=== PATIENT | female | born 1975 | race Caucasian/White ===

== ENCOUNTER → 2018-09-23 | Outpatient (CLI) | payer BC ==
[~2018-09-23] MED LIST: IBU800 PO; LABE200T31 PO; NIFE90TA40 PO; PER PO; PREN-127 PO
--- NOTE | 2018-09-27 10:17 | RADIOLOGY IMAGING REPORT ---
FACILITY: [facility] [place] PATIENT NAME: PAT RODRIGUEZ : [id number] MR: [id number] V: [id number] EXAM DATE: [id number] ORDERING PHYSICIAN: KENTON KRUEGER TECHNOLOGIST: Mone Antony PROCEDURE: BILATERAL DIGITAL SCREENING MAMMOGRAM WITH CAD ASSISTED INTERPRETATION & 3D TOMOSYNTHESIS REASON FOR STUDY: Screening FAMILY HISTORY OF BREAST CANCER: BREAST PROCEDURES/TREATMENTS: COMPARISON: Priors. VIEWS OBTAINED: 2D & 3D full field CC & MLO. BREAST DENSITY: The breasts are heterogeneously dense. MAMMOGRAM FINDINGS: A small group of microcalcifications is present in the superior aspect of the Right breast, warranting additional evaluation. Benign appearing asymmetries are scattered bilaterally, essentially unchanged. IMPRESSION: BIRADS 0: Incomplete. Right CC & Right ML Spot magnification views for evaluation of Right breast calcifications. DIAGNOSTIC CATEGORY 0--INCOMPLETE: NEED ADDITIONAL IMAGING EVALUATION. RECOMMENDATIONS: ADDITIONAL MAMMOGRAPHIC VIEWS REQUIRED: RIGHT BREAST. Dictated by: Fer Hernandez M.D. on 09/26/2018 at 8:59 Transcribed by: ADRIENNE on 09/26/2018 at 9:54 Approved by: Lori Orosco M.D. on 09/27/2018 at 10:16 [facility]
== END ==
LOC: MAMO 02:31
PROVIDERS: ATTEND Nurse Practitioner Family
DX: R92.8 Other abnormal and inconclusive findings on diagnostic imaging of breast (principal); Z80.3 Family history of malignant neoplasm of breast
CPT/HCPCS: 77063; 77067

== ENCOUNTER → 2018-10-04 | Outpatient (CLI) | payer BC ==
--- NOTE | 2018-10-05 14:37 | RADIOLOGY IMAGING REPORT ---
FACILITY: [facility] [place] PATIENT NAME: PAT RODRIGUEZ : [id number] MR: [id number] V: [id number] EXAM DATE: ORDERING PHYSICIAN: KENTON KRUEGER TECHNOLOGIST: Heidi Basilio PROCEDURE:RIGHT DIGITAL MAMMOGRAM DIAGNOSTIC WITH CAD ASSISTED INTERPRETATION REASON FOR STUDY: Further evaluation. FAMILY HISTORY OF BREAST CANCER: Maternal grandmother and 2 maternal aunts & mother. BREAST PROCEDURES/TREATMENTS: None. COMPARISON STUDIES: Prior mammograms 09/23/18, 12/25/15, 11/20/14, 08/05/12. VIEWS OBTAINED: 2D Spot magnification views in the Right CC & MLO projections. BREAST DENSITY: The breasts are heterogeneously dense which can obscure small masses. MAMMOGRAM FINDINGS: Spot magnification views confirm a tight grouping of mildly pleomorphic calcifications in the upper outer quadrant of the Right breast in the middle depth. These may have been present on older mammograms although due to the extreme difference in imaging technique this could not be determined in complete certainty. Given the family history of breast cancer Stereotactic biopsy of these calcifications are recommended. DIAGNOSTIC CATEGORY 4--SUSPICIOUS FOR MALIGNANCY. RECOMMENDATIONS: STEREOTACTIC BREAST BIOPSY: RIGHT BREAST. IMPRESSION: BIRADS 4: Suspicious for malignancy. Stereotactic biopsy of the indeterminate calcifications upper outer quadrant of the Right breast in the middle depth is recommended. Dictated by: Lori Orosco M.D. on 10/04/2018 at 16:54 Transcribed by: ADRIENNE on 10/05/2018 at 9:58 Approved by: Lori Orosco M.D. on 10/05/2018 at 14:36 [facility]
== END ==
LOC: MAMO 00:53
PROVIDERS: ATTEND Nurse Practitioner Family
DX: R92.1 Mammographic calcification found on diagnostic imaging of breast (principal)
CPT/HCPCS: 77061; 77065